=== PATIENT | female | born 1965 ===

== ENCOUNTER 2021-06-09 15:30 | Outpatient (CLI) | payer OTHER ==
[2021-06-10 14:18] LABS: SARS-CoV-2 PCR by NAA Not Detected (NotDetected)
== END 2021-06-09 15:31 | disposition home or self-care (01) ==
LOC: CSHLAB 15:30
PROVIDERS: ATTEND Internal Medicine Gastroenterology
DX: Z20.822 Contact with and (suspected) exposure to COVID-19 (principal)
CPT/HCPCS: U0003; U0005

== ENCOUNTER 2021-06-14 05:51 | Day surgery (SDC) | payer OTHER ==
[2021-06-13 10:27] VITALS: BMI 30.7
[2021-06-14] MEDS ORDERED: Lidocaine 1% MPF 2 ML VIAL ONE (06:09)
[2021-06-14] MEDS ORDERED: PROPOFOL 40 ML ONE (07:26)
[2021-06-14] MEDS ORDERED: Fentanyl 100 MCG/2 ML VIAL ONE (07:26)
[2021-06-14] MEDS ORDERED: Lidocaine 1% PF 5 ML VIAL ONE (07:27)
[2021-06-14] MEDS ORDERED: PROPOFOL 20 ML ONE (08:07)
== END 2021-06-14 08:51 | disposition home or self-care (01) ==
LOC: CSHSDC 05:51
PROVIDERS: ATTEND Internal Medicine Gastroenterology
PROC: 0DB58ZZ Excision of Esophagus, Via Natural or Artificial Opening Endoscopic (ICD-10-PCS; principal; 2021-06-14)
PROC: 0DJD8ZZ Inspection of Lower Intestinal Tract, Via Natural or Artificial Opening Endoscopic (ICD-10-PCS; principal; 2021-06-14)
DX: K62.5 Hemorrhage of anus and rectum (principal); K22.10 Ulcer of esophagus without bleeding; K57.30 Diverticulosis of large intestine without perforation or abscess without bleeding; K64.9 Unspecified hemorrhoids; D50.9 Iron deficiency anemia, unspecified
CPT/HCPCS: 88305; 88312; 88313; J2704; J3010